=== PATIENT | male | born 1955 | race Caucasian/White ===

== ENCOUNTER 2020-04-12 16:28 | Outpatient (CLI) | payer OTHER ==
--- NOTE | 2020-04-12 16:51 | RAD ---
FOUR VIEWS OF THE RIGHT ELBOW: 04/12/20 INDICATION: Right elbow pain. COMPARISON: None. IMPRESSION: No acute fracture or subluxation is evident. No joint capsular distention is noted. Radiocapitellar a lignment is within normal limits. POS: [facility]
== END 2020-04-12 16:29 | disposition home or self-care (01) ==
LOC: NAV RAD 16:28
PROVIDERS: ATTEND Nurse Practitioner Adult Health
DX: M25.521 Pain in right elbow (principal)